=== PATIENT | male | born 1975 | race Caucasian/White ===

== ENCOUNTER 2018-03-04 16:30 | Emergency (ER) | payer OTHER ==
[2018-03-04 17:37] LABS: ADD MAN DIFF? NO
[2018-03-04 17:39] LABS: BASO % 0 % (0-3); EOS # 0.1 x10^3/uL (0.0-0.7); EOS % 1 % (0-3); HEMATOCRIT 44.2 % (39.0-53.0); HEMOGLOBIN 15.4 g/dL (13.0-17.5); LYMPH % 32 % (24-48); MEAN CORPUSCULAR HEMOGLOBIN 30 pg (25-35); MEAN CORPUSCULAR HGB CONC 35 g/dL (31-37); MEAN CORPUSCULAR VOLUME 86 fL (79-100); MONO # 0.4 x10^3/uL (0.0-1.1); MONO % 7 % (0-9); NEUT # 3.7 x10^3uL (1.8-7.7); NEUT % 60 % (31-73); PLATELET COUNT 248 x10^3/uL (140-400); RED BLOOD COUNT 5.17 x10^6/uL (4.30-5.70); RED CELL DISTRIBUTION WIDTH 13.8 % (11.5-14.5); WHITE BLOOD COUNT 6.2 x10^3/uL (4.0-11.0)
[2018-03-04 17:48] LABS: ANION GAP 9 (6-14); BLOOD UREA NITROGEN 14 mg/dL (8-26); BUN/CREATININE RATIO 14 (6-20); CALCIUM 8.7 mg/dL (8.5-10.1); CARBON DIOXIDE 27 mmol/L (21-32); CHLORIDE 106 mmol/L (98-107); GFR 82.8; GLUCOSE 125 mg/dL (70-99); POTASSIUM 3.5 mmol/L (3.5-5.1); SODIUM 142 mmol/L (136-145)
[2018-03-04 17:54] LABS: ALBUMIN 3.8 g/dL (3.4-5.0); ALBUMIN/GLOBULIN RATIO 1.1 (1.0-1.7); ALK PHOS 55 U/L (46-116); ALT (SGPT) 58 U/L (16-63); AST (SGOT) 29 U/L (15-37); TOTAL BILIRUBIN 0.4 mg/dL (0.2-1.0); TOTAL PROTEIN 7.4 g/dL (6.4-8.2)
[2018-03-04 19:13] LABS: FECAL OB PT NEGATIVE (NEG); NEG OBC FOB NEG; POS OBC FOB POS
== END 2018-03-04 19:34 | disposition home or self-care (01) ==
LOC: ER 16:30
DX: R19.7 Diarrhea, unspecified (principal); R10.9 Unspecified abdominal pain; F41.9 Anxiety disorder, unspecified
CPT/HCPCS: 36415; 74022; 80053; 82274; 85025; 99285

== ENCOUNTER → 2021-03-14 | Outpatient (CLI) | payer OTHER ==
[2018-03-04 19:28] VITALS: BP 134/63
--- NOTE | 2021-03-14 12:13 | KCIC ---
EXAM: Lumbar spine, 5 views. HISTORY: Fall and muscle spasm. COMPARISON: None. FINDINGS: 5 views of the lumbar spine are obtained. There is no listhesis. There is minimal anterior wedging of T12, likely developmental or degenerative in etiology. There is no acute or subacute fract ure. There is multilevel endplate remodeling and facet arthropathy, predominantly at the lower lumbar levels and lower thoracic levels. IMPRESSION: 1. Multilevel degenerative change, described above. 2. No acute osseous finding. Electronically signed by: Nicole Conde MD (03/14/2021 12:10 PM) [id number]
== END ==
LOC: KCIC 11:27
PROVIDERS: ATTEND Physician Assistant
DX: M47.816 Spondylosis without myelopathy or radiculopathy, lumbar region (principal); M62.830 Muscle spasm of back
CPT/HCPCS: 72110

== ENCOUNTER → 2021-05-02 | Outpatient (CLI) | payer OTHER ==
[2018-03-04 19:28] VITALS: BP 134/63
--- NOTE | 2021-05-02 15:26 | KCIC ---
EXAM: Lumbar spine MRI without contrast. HISTORY: Acute lower back pain. Muscle spasm. Lower extremity pain. TECHNIQUE: Multiplanar, multisequence magnetic resonance imaging of the lumbar spine was performed wi thout contrast. COMPARISON: None. FINDINGS: There is no listhesis. The vertebral bodies are normal in height. There is endplate remodel ing at multiple levels. There are few small endplate Schmorl's nodes. There is no fracture. There is no suspicious osseous lesion. The conus terminates at L1. At L1-L2, there is no stenosis. At L2-L3, there is no stenosis. At L3-L4, there is slight congenital narrowing of the central canal and prominent dorsal epidural fat containing 2 mild central canal stenosis. At L4-L5, there is minimal bilateral facet arthropathy. There is minimal bilateral foraminal stenosis . At L5-S1, there is mild bilateral facet arthropathy. There is no stenosis. IMPRESSION: Minimal degenerative change involving the lumbar spine, described in detail above. There is no acute finding or severe foraminal or central canal stenosis. Electronically signed by: Nicole Conde MD (05/02/2021 3:24 PM) [facility]
== END ==
LOC: KCIC MRI 14:34
PROVIDERS: ATTEND Physician Assistant
DX: M47.817 Spondylosis without myelopathy or radiculopathy, lumbosacral region (principal); M48.061 Spinal stenosis, lumbar region without neurogenic claudication; M51.36 Other intervertebral disc degeneration, lumbar region; M51.46 Schmorl's nodes, lumbar region; M62.830 Muscle spasm of back
CPT/HCPCS: 72148

== ENCOUNTER → 2021-06-12 | Outpatient (CLI) | payer OTHER ==
[2018-03-04 19:28] VITALS: BP 134/63
[~2021-06-12] MED LIST: CYCL5TAB PO; DEXT10TA23 PO; IOHEXOL 180 MG/ML 10 ML VIAL. ONE; NAPR-514 PO; methylPREDNISolone ACETATE 40 MG/ML VIAL. ONE; methylPREDNISolone ACETATE 80 MG/ML VIAL. ONE
--- NOTE | 2021-06-12 13:06 | PDOC4 ---
Procedure Note: ICD 10 Code: ICD 10 Code: M54.16 M51.36 Procedure Note: Patient was consented for lumbar epidural steroid injection with fluoroscopic guidance. Risks were discussed including but not limited to: Bleeding, infection, possibility of epidural hematoma and subsequent neurological compromise, dural puncture, headaches, spinal cord and/or nerve damage, side effects of steroid medication, and poor results regarding pain control. Patient understands and wished to proceed. Procedure is lumbar epidural steroid injection under local anesthetic using sterile prep and drape at the L4-5 level using C-arm fluoroscopic guidance in both AP and lateral views medications injected is 120 mg Depo-Medrol +10mL preservative-free normal saline and 2 mL contrast- condition at discharge is stable patient tolerated procedure well had no complications. SUMEET VERAS MD Jun 12, 2021 13:06
--- NOTE | 2021-06-12 13:06 | PDOC1 ---
INITIAL PAIN CONSULT DATE OF SERVICE: DOS: DATE: 06/12/21 TIME: 13:00 CHIEF COMPLAINT: Chief Complaint: Low back and left lower extremity pain HISTORY OF PRESENT ILLNESS: 45-year-old male presents history of pain low back left lower extremity status post accident at home fell off a ladder that was attached to his tractor hurting his back and having significant pain in the low back and radiate the left lower extremity almost immediately. Patient report is worse with walking standing changing positions standing for more than 4 to 5 minutes exacerbates the pain significantly he has been trying to stay off of his left leg because it does hurt with walking standing he is so far had physical therapy chiropractic treatment is currently doing exercise also had some trigger point injections all these of been helpful but only very temporarily patient reports it wakes him sleep 1-3 times at night but she lays on his left side does not affect his bowel bladder control does affect his ability to walk at times he is unable to climb stairs very well with his left leg or go down hills with his left leg much more painful patient reports his disability rating 0-10 10 being the worst is a 9 with family home responsibilities and social activity 7 with recreation 10 with occupation 5 with sexual behavior self-care and life support activities. Patient did have an MRI scan of the lumbar spine showing minimal degenerative change involving lumbar spine with some slight congenital narrowing L3-4 with minimal bilateral facet arthropathy at L4-5 and L5-S1 with minimal bilateral foraminal stenosis L4-5. Patient reports significant fatigability the left lower extremity no full motor loss. Patient scribes pain is sharp stabbing throbbing shooting at times tingling and numbness at times and was burning in the back and leg in the posterior gluteus lateral thigh anterior thigh medial thigh medial knee on the left side as well. PAST MEDICAL HISTORY: PMH: Arthritis, hearing loss, attention deficit disorder PREVIOUS SURGERIES: Past Surgical Hx: Umbilical hernia repair x2, tonsillectomy, wisdom teeth extraction CURRENT MEDICATIONS: Current Meds: See chart ALLERGIES; Allergies: Coded Allergies: No Known Drug Allergies (Unverified , 10/09/14) FAMILY HISTORY: Family Hx: No major medical problems or conditions that he is aware of. SOCIAL HISTORY: Social Hx: Patient drinks alcohol very rarely does not smoke says any illegal illicit recreational drugs is lives with his spouse as usual living at home lives in [place], [place] and works as a septic technician REVIEW OF SYSTEMS: ROS: Positive for those items mentioned in history of present illness, all systems are reviewed, otherwise negative ,and are complete full and well-documented on patient's chart. PHYSICAL EXAM: VS: Blood pressure is 120/99 pulse 83 respirations are 16 temperature is 98.5 F height 5 feet 9 inches weight is 258 pounds PE: PHYSICAL EXAMINATION: GENERAL: The patient is awake, alert, oriented, appropriate, very pleasant in demeanor HEENT: Shows normocephalic, atraumatic. Extraocular movements are intact and symmetrical. Oral cavity: Mucous membranes moist and pink. Dentition is intact. NECK: Shows anterior throat supple without palpable lymphadenopathy noted. Swallow reflex symmetrical. CHEST: Shows normal on inspection. Breath sounds are clear bilaterally, distant but no rales rhonchi wheezes. HEART: Shows S1, S2 clear. No murmurs auscultated. ABDOMEN: Soft, nontender, nondistended, obese. No palpable organomegaly is noted. No rebound or guarding demonstrated. BACK: Shows spine grossly in the midline. Normal-appearing cervical lordotic curvature. There is slightly increased thoracic kyphosis, some minor flattening of the lumbar lordotic curvature. Lumbar paraspinous muscles show symmetrical on inspection, on palpation shows some moderate tenderness diffusely throughout the upper, middle and lower distribution of the paraspinous muscles bilaterally and also into the lower thoracic paraspinous musculature, firm and tender, without specific trigger points, without radiation of pain. The patient has good rotational motion of the lumbar spine, both laterally as well as extension and flexion without significant difficulty. EXTREMITIES: Lower extremities show deep tendon reflexes 2+ in the patellar and tendo calcaneus tendons. Motor exam is 5 on a scale of 5 with right dorsiflexion, extension, quadriceps and hamstring flexion and 5/5 on the left. Peripheral pulses are 1+ posterior tibial. No peripheral edema is noted bilaterally. Lower extremities are warm and dry to touch, equal in color and appearance. Straight leg raise noted to be positive on the left at approximate 40 degrees decreased with knee flexion, right side is negative. Gaenslen's and Mario's maneuvers are negative bilaterally. The patient is able to stand, stand on his toes that significant difficulty or loss of balance, walks with a slight favoring gait does appear to favor the left lower extremity with even a short walk in the office today not use any assistive devices canes or walkers to ambulate. SKIN: Shows warm and dry, good turgor. No edema. No sores, rashes or bruising throughout. IMPRESSION: Impression: 45-year-old male with history of injury February 24 low back and left lower extremity pain and radicular fashion as a result MRI scan lumbar spine as noted Arthritis Plan: Options were discussed with the patient. Conservative medical management continued physical therapies and interventional techniques. Patient would like to pursue interventional techniques. We discussed a lumbar epidural steroid injection using descriptions as well as anatomical models described procedure. Risks were discussed including but not limited to: Bleeding, infection, possibility of epidural hematoma and subsequent neurological compromise, dural puncture, headaches, spinal cord and/or nerve damage, side effects of steroid medication, and poor results regarding pain control. Patient understands and wished to proceed. Patient will return to the clinic in approximate 2 weeks for follow-up, was counseled as return appointment activity level and side effects to be aware of. Procedure is lumbar epidural steroid injection under local anesthetic using sterile prep and drape at the L4-5 level using C-arm fluoroscopic guidance in both AP and lateral views medications injected is 120 mg Depo-Medrol +10mL preservative-free normal saline and 2 mL contrast- condition at discharge is stable patient tolerated procedure well had no complications. SUMEET VERAS MD Jun 12, 2021 13:06
== END | disposition home or self-care (01) ==
LOC: PNCL 08:43
PROVIDERS: ATTEND Anesthesiology
DX: M51.16 Intervertebral disc disorders with radiculopathy, lumbar region (principal); M79.605 Pain in left leg; M19.90 Unspecified osteoarthritis, unspecified site; Z79.899 Other long term (current) drug therapy; Z88.1 Allergy status to other antibiotic agents; Z72.89 Other problems related to lifestyle
CPT/HCPCS: 62323; J1030; J1040; Q9965

== ENCOUNTER → 2021-06-26 | Outpatient (CLI) | payer OTHER ==
[2018-03-04 19:28] VITALS: BP 134/63
--- NOTE | 2021-06-26 09:36 | PDOC ---
Progress Note - Pain Clinic Date of Service: DOS: DATE: 06/26/21 TIME: 09:33 Diagnosis: Dx: Lumbar radiculopathy with lumbar degenerative disc History or Present Illness: HPI: 45-year-old male returns for follow-up status post lumbar epidural steroid injection x1. Patient reports about 25% improvement after the 1st injection with still pain in the low back and left lower extremity patient reports rating the posterior gluteus lateral thigh anterior thigh medial thigh and worse with walking standing patient reports also new finding of left testicular pain after his last injection which seemed to resolve after about 4 to 5days we discussed this and if not to significantly improved long-term or if it comes back we will have him see a urologist. Patient reports that now the pain is gone and the left testicle is still pain the low back and left leg as previously patient reports aching sharp tingling burning rated as a 7-8 at its worst 5 on average 2-3 at its least and is a 5 today patient reports no bowel or bladder incontinence. Patient reports awakening from sleep about 3 times a night. Physical Exam: VS: Blood pressure is 149/112 pulse 87 respirations 18 temperature 90.8 F height is 5 feet 9 inches weight is 258 pounds PE: PHYSICAL EXAMINATION: GENERAL: The patient is awake, alert, oriented, appropriate, very pleasant in demeanor HEENT: Shows normocephalic, atraumatic. Extraocular movements are intact and symmetrical. Oral cavity: Mucous membranes moist and pink. Dentition is intact. NECK: Shows anterior throat supple without palpable lymphadenopathy noted. Swallow reflex symmetrical. CHEST: Shows normal on inspection. Breath sounds are clear bilaterally. HEART: Shows S1, S2 clear. No murmurs auscultated. ABDOMEN: Soft, nontender, nondistended, obese. No palpable organomegaly is noted. BACK: Shows spine grossly in the midline. Normal-appearing cervical lordotic curvature. There is slightly increased thoracic kyphosis, some minor flattening of the lumbar lordotic curvature. Lumbar paraspinous muscles show symmetrical on inspection, on palpation shows some moderate tenderness diffusely throughout the upper, middle and lower distribution of the paraspinous muscles without specific trigger points, without radiation of pain. The patient has good rotational motion of the lumbar spine, both laterally as well as extension and flexion without significant difficulty. EXTREMITIES: Lower extremities show deep tendon reflexes 2+ in the patellar and tendo calcaneus tendons. Motor exam is 5 on a scale of 5 with right dorsiflexion, extension, quadriceps and hamstring flexion and 5/5 on the left. Peripheral pulses are 1+ posterior tibial. No peripheral edema is noted bilaterally. Lower extremities are warm and dry to touch, equal in color and appearance. SKIN: Shows warm and dry, good turgor. No edema. No sores, rashes or bruising throughout. Procedure: Procedure: Options discussed with the patient. Patient chart was reviewed his current medication regimen updated current review of systems updated today as well. We will proceed with a lumbar epidural steroid injection today with fluoroscopic guidance. Risks were discussed including but not limited to: Bleeding, infection, possibility of epidural hematoma and subsequent neurological compromise, dural puncture, headaches, spinal cord and/or nerve damage, side effects of steroid medication, and poor results regarding pain control. Patient understands and wished to proceed. Patient will return to the clinic in approximate 2 weeks for follow-up, was counseled return appointment, activity level and side effect to be aware of. Medication Injected: Med Injected: Procedure is lumbar epidural steroid injection under local anesthetic using sterile prep and drape at the L4-5 level using C-arm fluoroscopic guidance in both AP and lateral views medications injected is 120 mg Depo-Medrol +10mL preservative-free normal saline and 2 mL contrast- condition at discharge is stable patient tolerated procedure well had no complications. Condition at Discharge: Condition at Discharge: Condition at discharge stable, patient tolerated the procedure well and had no complications. SUMEET VERAS MD Jun 26, 2021 09:36
--- NOTE | 2021-06-26 09:37 | PDOC4 ---
Procedure Note: ICD 10 Code: ICD 10 Code: M54.16 M51.36 Procedure Note: Patient was consented for lumbar epidural steroid injection with fluoroscopic guidance. Risks were discussed including but not limited to: Bleeding, infection, possibility of epidural hematoma and subsequent neurological compromise, dural puncture, headaches, spinal cord and/or nerve damage, side effects of steroid medication, and poor results regarding pain control. Patient understands and wished to proceed. Patient will return to clinic in approximate 2 weeks for follow-up, was counseled as return appointment, activity level, and side effect to be aware of. Procedure is lumbar epidural steroid injection under local anesthetic using sterile prep and drape at the L4-5 level using C-arm fluoroscopic guidance in both AP and lateral views medications injected is 120 mg Depo-Medrol +10mL preservative-free normal saline and 2 mL contrast- condition at discharge is stable patient tolerated procedure well had no complications. SUMEET VERAS MD Jun 26, 2021 09:37
== END | disposition home or self-care (01) ==
LOC: PNCL 08:59
PROVIDERS: ATTEND Anesthesiology
DX: M51.16 Intervertebral disc disorders with radiculopathy, lumbar region (principal); Z79.899 Other long term (current) drug therapy; Z88.1 Allergy status to other antibiotic agents; Z72.89 Other problems related to lifestyle
CPT/HCPCS: 62323; J1030; J1040; Q9965

== ENCOUNTER → 2021-07-10 | Outpatient (CLI) | payer OTHER ==
[2018-03-04 19:28] VITALS: BP 134/63
[~2021-07-10] MED LIST changes: -IOHEXOL 180 MG/ML 10 ML VIAL. ONE
--- NOTE | 2021-07-10 11:18 | PDOC ---
Progress Note - Pain Clinic Date of Service: DOS: DATE: 07/10/21 TIME: 11:15 Diagnosis: Dx: Lumbar radiculopathy with lumbar degenerative disc disease History or Present Illness: HPI: 45-year-old male returns for follow-up status post lumbar epidural steroid injection x2. Patient reports about 50% improvement initially but now only about 20% overall with pain returning in the low back and left lower extremity posterior gluteus posterior thigh lateral thigh anterior thigh also some pain in the left testicle and knee pain on the right side in the right posterior aspect of the upper hip and thigh as well patient reports an 8 on scale 10 is worse ove r the past week 5 on average 3 its least and is a 5 today patient reports aching at times tingling burning constant patient reports initially doing better with distance walking doing household activities travel with greater ease and sleeping better but can need to return now impairing all of these activities and sleeping is difficult to awaken her from sleep at every 3 hours. Patient reports no bowel or bladder incontinence but significant fatigability and significant pain in the left lower extremity and radicular fashion again following L4-5 dermatomal distribution and some on the right now as well. Physical Exam: VS: Blood pressure is 145/88 pulse 84 respirations 18 temperature 98.3 F height is 5 feet 9 inches weight is 238 pounds PE: PHYSICAL EXAMINATION: GENERAL: The patient is awake, alert, oriented, appropriate, very pleasant in demeanor HEENT: Shows normocephalic, atraumatic. Extraocular movements are intact and symmetrical. Oral cavity: Mucous membranes moist and pink. Dentition is intact. NECK: Shows anterior throat supple without palpable lymphadenopathy noted. S wallow reflex symmetrical. CHEST: Shows normal on inspection. Breath sounds are clear bilaterally, distant but no rales or rhonchi. HEART: Shows S1, S2 clear. No murmurs auscultated. ABDOMEN: Soft, nontender, nondistended, obese. No palpable organomegaly is noted. BACK: Shows spine grossly in the midline. Normal-appearing cervical lordotic curvature. There is slightly increased thoracic kyphosis, some flattening of the lumbar lordotic curvature. Lumbar paraspinous muscles show symmetrical on inspection, on palpation shows some moderate tenderness diffusely throughout the upper, middle and lower distribution of the paraspinous muscles without specific trigger points, without radiation of pain. The patient has good rotational motion of the lumbar spine, both laterally as well as extension and flexion without significant difficulty. EXTREMITIES: Lower extremities show deep tendon reflexes 2+ in the patellar and tendo calcaneus tendons. Motor exam is 5 on a scale of 5 with right dorsiflexion, extension, quadriceps and hamstring flexion and 5/5 on the left. Peripheral pulses are 1+ posterior tibial. No peripheral edema is noted bilaterally. Lower extremities are warm and dry to touch, equal in color and appearance. SKIN: Shows warm and dry, good turgor. No edema. No sores, rashes or bruising throughout. Procedure: Procedure: Options were discussed with the patient. Patient chart was reviewed his current medication regimen updated current review of systems updated today as well. We will proceed with a lumbar epidural steroid injection today with fluoroscopic guidance. Risks were discussed including but not limited to: Bleeding, infection, possibility of epidural hematoma and subsequent neurological compromise, dural puncture, headaches, spinal cord and/or nerve damage, side effects of steroid medication, and poor results regarding pain control. Patient understands and wished to proceed. Patient will return to the clinic in approximate 2 weeks for follow-up, was counseled as return appointment, activity level, and side effect to be aware of. Medication Injected: Med Injected: Procedure is lumbar epidural steroid injection under local anesthetic using sterile prep and drape at the L4-5 level using C-arm fluoroscopic guidance in both AP and lateral views medications injected is 120 mg Depo-Medrol +10mL preservative-free normal saline and 2 mL contrast- condition at discharge is stable patient tolerated procedure well had no complications. Condition at Discharge: Condition at Discharge: Condition at discharge is stable, patient tolerated the procedure well and had no complications. SUMEET VERAS MD Jul 10, 2021 11:17
--- NOTE | 2021-07-10 11:18 | PDOC4 ---
Procedure Note: ICD 10 Code: ICD 10 Code: M54.16 M51.36 Procedure Note: Patient was consented for lumbar epidural steroid injection with fluoroscopic guidance. Risks were discussed including but not limited to: Bleeding, infection, possibility of epidural hematoma and subsequent neurological compromise, dural puncture, headaches, spinal cord and/or nerve damage, side effects of steroid medication, and poor results regarding pain control. Patient understands and wished to proceed. Procedure is lumbar epidural steroid injection under local anesthetic using sterile prep and drape at the L4-5 level using C-arm fluoroscopic guidance in both AP and lateral views medications injected is 120 mg Depo-Medrol +10mL preservative-free normal saline and 2 mL contrast- condition at discharge is stable patient tolerated procedure well had no complications. SUMEET VERAS MD Jul 10, 2021 11:18
== END | disposition home or self-care (01) ==
LOC: PNCL 10:26
PROVIDERS: ATTEND Anesthesiology
DX: M51.16 Intervertebral disc disorders with radiculopathy, lumbar region (principal); Z79.899 Other long term (current) drug therapy; Z88.1 Allergy status to other antibiotic agents; Z72.89 Other problems related to lifestyle
CPT/HCPCS: 62323; J1030; J1040